=== PATIENT | female | born 1980 | race Caucasian/White ===

== ENCOUNTER 2018-04-03 15:30 | Outpatient (RCR) | payer BC | END 2018-04-16 | disposition home or self-care (01) | LOC: PTY 15:30 | DX: M25.511 Pain in right shoulder (principal); M54.9 Dorsalgia, unspecified; M54.2 Cervicalgia ==

== ENCOUNTER 2018-04-20 14:17 | Outpatient (RCR) | payer BC | END 2018-05-16 | disposition home or self-care (01) | LOC: PTY 14:17 | DX: M25.511 Pain in right shoulder (principal); M54.9 Dorsalgia, unspecified ==